=== PATIENT | male | born 2000 | race American Indian/Alaskan Native ===

== ENCOUNTER 2021-11-21 21:39 | Emergency (ER) | payer MEDICAID ==
[2021-11-21 21:43] VITALS: BP 132/83
[2021-11-21] MEDS ORDERED: ONDANSETRON 4 MG ODT TAB PO ONE (23:49)
--- NOTE | 2021-11-21 23:55 | Emergency Department Report ---
HPI - General Chief Complaint: Nausea/Vomiting/Diarrhea Time Seen by Provider: 11/21/21 23:48 - HPI HPI: 21-year-old -[place] male presents to the emergency department with a complaint of a 1 to 2-day history of generalized body aches, nausea, vomiting and diarrhea. He says that he was exposed to a friend who has "a bug." Patient himself is not vaccinated for COVID-19 or influenza. He has a past medical history of asthma. He has not taken anything for symptoms prior to presentation today. No recent travel or sick contacts at home. ED Past Medical Hx - Past Medical History Previous Medical History?: No - Surgical History Past Surgical History?: No - Medications Home Medications: Home Medications Medication Instructions Recorded Confirmed Last Taken Type Ondansetron [Zofran Odt] 4 mg PO Q8HR PRN #15 tab.rapdis 11/22/21 Unknown Rx ED Review of Systems ROS: Stated complaint: VOMITING Other details as noted in HPI Comment: All other systems reviewed and negative Constitutional: denies: chills, fever Eyes: denies: eye pain, vision change ENT: denies: ear pain, throat pain Respiratory: denies: cough, shortness of breath Cardiovascular: denies: chest pain, palpitations Gastrointestinal: nausea, vomiting, diarrhea. denies: abdominal pain Musculoskeletal: myalgia. denies: joint swelling Skin: denies: rash, lesions Neurological: denies: headache, weakness Physical Exam - Physical Exam Vital Signs: Vital Signs 11/21/21 21:42 Temperature 97.8 F Pulse Rate 84 Respiratory 18 Rate Blood Pressure 132/83 O2 Sat by Pulse 100 Oximetry Physical Exam: GENERAL: The patient is well-developed well-nourished. HENT: Normocephalic. Atraumatic. Patient has moist mucous membranes. EYES: Extraocular motions are intact. NECK: Supple. Trachea is midline. CHEST/LUNGS: Clear to auscultation. There is no respiratory distress noted. HEART/CARDIOVASCULAR: Regular. There is no tachycardia. There is no murmur. ABDOMEN: Abdomen is soft, nontender. Patient has normal bowel sounds. SKIN: Skin is warm and dry. NEURO: The patient is awake, alert, and oriented. The patient is cooperative. Normal speech. MUSCULOSKELETAL: There is no tenderness or deformity. ED Course Vital Signs 11/21/21 21:42 Temperature 97.8 F Pulse Rate 84 Respiratory 18 Rate Blood Pressure 132/83 O2 Sat by Pulse 100 Oximetry ED Medical Decision Making - Medical Decision Making This patient presents with a 1 to 2-day history of nausea, vomiting and diarrhea. On examination he does not appear in any respiratory or acute distress. No active vomiting. Vital signs reassuring including being afebrile. Patient was given a dose of Zofran. Upon reevaluation he is feeling improved and able to pass an oral challenge. He will be discharged home to seek outpatient COVID-19 testing and was given a prescription for Zofran ODT so he can increase his oral rehydration. Critical Care Time: No Critical care attestation.: If time is entered above; I have spent that time in minutes in the direct care of this critically ill patient, excluding procedure time. ED Disposition Clinical Impression: Viral syndrome Disposition: HOME / SELF CARE / HOMELESS Is pt being admited?: No Condition: Stable Instructions: Diarrhea, Adult, Nausea and Vomiting, Adult, Viral Illness, Adult Additional Instructions: Increase your oral rehydration. Please follow-up with a primary care physician in the next few days. I have given you a referral for a local primary care physician, Dr. Guan, and a primary care clinic, [facility]. Return to the emergency department with any worsening of your symptoms, new or concerning symptoms not addressed during this current emergency department visit, or with any acute distress. Prescriptions: Ondansetron [Zofran Odt] 4 mg PO Q8HR PRN #15 tab.rapdis PRN Reason: Nausea Referrals: PRIMARY MD ZHANG [Primary Care Provider] - 3-5 Days CARYL GUAN MD [Staff Physician] - 3-[address] [facility] [Provider Group] - 3-5 Days Forms: Work/School Release Form(ED) Time of Disposition: 01:00
== END 2021-11-22 02:48 | disposition home or self-care (01) ==
LOC: ED 21:39
DX: B34.9 Viral infection, unspecified (principal)
CPT/HCPCS: 99282; J3490; Q0162